=== PATIENT | male | born 1985 | race Caucasian/White ===

== ENCOUNTER 2017-05-27 12:06 | Inpatient (IN) | payer OTHER ==
[2017-05-27 12:15] VITALS: BMI 23.8
--- NOTE | 2017-05-27 16:33 | HP ---
COWS - Scale Resting Pulse: 0= CO 80 or Below Sweatin= Chills/Flushing Restless Observation: 1= Difficult to Sit Still Pupil Size: 0= Normal to Room Light Bone or Joint Aches: 2= Severe Diffuse Aches Runny Nose/ Eye Tearin= Runny Nose/Eyes GI Upset > 30mins: 2= Nausea/Diarrhea Tremor Observation: 2= Slight Tremor Visible Yawning Observation: 2= >3x During Session Anxiety or Irritability: 2=Irritable/Anxious Goose Flesh Skin: 0=Smooth Skin COWS Score: [address] [facility] Chief Complaint: "I have a Heroin problem and I would really like to get my life together." Patient is here to Detox from Heroin. Allergies/Adverse Reactions: Allergies Allergy/AdvReac Type Severity Reaction Status Date / Time Fish Containing Products Allergy Severe Hives Verified 05/27/17 16:25 fish derived Allergy Severe Hives Verified 05/27/17 16:25 History of Present Illness: Patient is a 31 YO male here to Detox from Heroin. This is patient's first Detox admission at [facility]. Patient had a Detox admission at [facility] in 11/2016. Longest period of non-drug use in recent years: approx. 2 weeks (11/2016). Exam Limitations: No Limitations - Ebola screening Have you traveled outside of the country in the last 21 days: No Have you had contact with anyone from an Ebola affected area: No Have you been sick,other than usual withdrawal symptoms: No Do you have a fever: No - Review of Systems Constitutional: Chills, Diaphoresis, Fever, Loss of Appetite, Malaise, Night Sweats, Changes in sleep, Unexplained wgt Loss (Lost approx. 20 lbs over last 6 months.) EENT: reports: Nose Congestion, Sinus Pressure Respiratory: reports: No Symptoms reported Cardiac: reports: No Symptoms Reported GI: reports: Diarrhea, Nausea, Poor Appetite, Vomiting, Indigestion (Heartburn.) , Abdominal cramping : reports: No Symptoms Reported Musculoskeletal: reports: No Symptoms Reported Integumentary: reports: No Symptoms Reported Neuro: reports: Tremors Endocrine: reports: No Symptoms Reported Hematology: reports: No Symptoms Reported Psychiatric: reports: Judgement Intact, Mood/Affect Appropiate, Orientated x3, Anxious (On meds.), Depressed (Due to Drug use and personal situation.) Other Systems: Reviewed and Negative Patient History - Patient Medical History Hx Anemia: No Hx Asthma: No Hx Chronic Obstructive Pulmonary Disease (COPD): No Hx Cancer: No Hx Cardiac Disorders: No Hx Congestive Heart Failure: No Hx Hypertension: No Hx Hypercholesterolemia: No Hx Pacemaker: No HX Cerebrovascular Accident: No Hx Seizures: No Hx Dementia: No Hx Diabetes: No Hx Gastrointestinal Disorders: No Hx Liver Disease: No Hx Genitourinary Disorders: No Hx Sexually Transmitted Disorders: No Hx Renal Disease (ESRD): No Hx Thyroid Disease: No Hx Human Immunodeficiency Virus (HIV): No (Last tested approx. 2 months ago.) Hx Hepatitis C: No (NEGATIVE, Cannot recall when last tested.) Hx Depression: Yes (Only due to substance use and currenet personal situation.) Hx Suicide Attempt: No (PATIENT DENIES CURRENT SI / HI.) Hx Bipolar Disorder: No Hx Schizophrenia: No Other Medical History: DENIES. - Patient Surgical History Past Surgical History: No Hx Neurologic Surgery: No Hx Cataract Extraction: No Hx Cardiac Surgery: No Hx Lung Surgery: No Hx Breast Surgery: No Hx Breast Biopsy: No Hx Abdominal Surgery: No Hx Appendectomy: No Hx Cholecystectomy: No Hx Genitourinary Surgery: No Hx Section: No Hx Orthopedic Surgery: No Other Surgical History: DENIES. Anesthesia Reaction: No - PPD History Previous Implant?: Yes Documented Results: Negative w/o proof Implanted On Prior [facility] Admission?: No PPD to be Administered?: Yes - Reproductive History Patient is a Female of Child Bearing Age (11 -55 yrs old): No (PATIENT IS MALE.) - Smoking Cessation Smoking history: Current every day smoker Have you smoked in the past 12 months: Yes Aproximately how many cigarettes per day: 30 Cigars Per Day: 0 Hx Chewing Tobacco Use: No Initiated information on smoking cessation: Yes 'Breaking Loose' booklet given: 05/27/17 (GIVEN TO PATIENT.) - Substance & Tx. History Hx Alcohol Use: No Hx Substance Use: Yes Substance Use Type: Heroin, Marijuana Hx Substance Use Treatment: Yes (1 Detox Admission at [facility] ( 11/2016).) - Substances Abused Heroin Route: Inhalation Frequency: Daily Amount used: 1 BUNDLE Age of first use: 30 Date of Last Use: 05/26/17 Alprazolam (Xanax) Route: Oral Frequency: 1-3 times last 30 days Amount used: 2 MG Age of first use: 30 Date of Last Use: 05/26/17 Marijuana/Hashish Route: Smoking Frequency: Daily Amount used: 3.5 Grams Age of first use: 19 Date of Last Use: 05/27/17 Family Disease History - Family Disease History Family Disease History: Other: Father (HTN AND STROKE--), Brother ( Overdose, .) Admission Physical Exam [facility] - Vital Signs Vital Signs: Vital Signs - 24 hr 05/27/17 12:10 Temperature 96.7 F L Pulse Rate 74 Respiratory 18 Rate Blood Pressure 119/71 - Physical General Appearance: Yes: No Apparent Distress, Nourished, Appropriately Dressed , Mild Distress, Tremorous, Anxious HEENTM: Yes: Hearing grossly Normal, Normocephalic, Normal Voice, KHOA, Pharynx Normal Respiratory: Yes: Chest Non-Tender, Lungs Clear, No Respiratory Distress, No Accessory Muscle Use Neck: Yes: No masses,lesions,Nodules, Supple, Trachea in good position Breast: Yes: Breast Exam Deferred Cardiology: Yes: Regular Rhythm, Regular Rate, S1, S2 Abdominal: Yes: Normal Bowel Sounds, Non Tender, Flat, Soft Genitourinary: Yes: Within Normal Limits Back: Yes: Normal Inspection Musculoskeletal: Yes: full range of Motion, Gait Steady Extremities: Yes: Normal Capillary Refill, Normal Range of Motion, Non-Tender, Tremors Neurological: Yes: Fully Oriented, Alert, Normal Mood/Affect, Normal Response Integumentary: Yes: Normal Color, Dry, Warm Lymphatic: Yes: Within Normal Limits - Diagnostic (1) Opioid dependence with withdrawal Current Visit: Yes Status: Acute (2) Nicotine dependence Current Visit: Yes Status: Chronic Qualifiers: Nicotine product type: cigarettes Substance use status: uncomplicated Qualified Code(s): F17.210 - Nicotine dependence, cigarettes, uncomplicated (3) Anxiety Current Visit: Yes Status: Acute (4) Insomnia Current Visit: Yes Status: Acute Qualifiers: Insomnia type: unspecified Qualified Code(s): G47.00 - Insomnia, unspecified (5) Cannabis dependence, uncomplicated Current Visit: Yes Status: Acute (6) Sedative, hypnotic or anxiolytic dependence with withdrawal, uncomplicated Current Visit: Yes Status: Acute Cleared for Admission [facility] - Detox or Rehab [facility] Level of Care: Medically Managed Detox Regimen/Protocol: Methadone [facility] Breath Alcohol Content Breath Alcohol Content: 0 Urine Drug Screen - Results Drug Screen Negative: No Urine Drug Screen Results: THC-Marijuana, OPI-Opiates, BAR-Barbiturates, BZO- Benzodiazepines, MTD-Methadone, TCA-Tricyclic Antidepress, OXY-Oxycodone
[2017-05-27] MEDS ORDERED: guaiFENesin/D-METHORPHAN HB 10 ML UNIT-DOSE CUPS PO PRN (16:58)
[2017-05-27] MEDS ORDERED: NICOTINE POLACRILEX 4 MG GUM BC PRN (16:58)
[2017-05-27] MEDS ORDERED: ACETAMINOPHEN 325 MG TABLET (FP) PO PRN (16:58)
[2017-05-27] MEDS ORDERED: IBUPROFEN 400 MG TABLET (FP) PO PRN (16:58)
[2017-05-27] MEDS ORDERED: LOPERAMIDE HCL 2 MG CAPSULE PO PRN (16:58)
[2017-05-27] MEDS ORDERED: MAG HYDROX/AL HYDROX/SIMETH 30 ML UNIT-DOSE CUP PO PRN (16:58)
[2017-05-27] MEDS ORDERED: MENTHOL/PHENOL 1 EACH UD MM PRN (16:58)
[2017-05-27] MEDS ORDERED: P-EPHED 60MG/TRIPROLIDI 2.5MG TABLET PO PRN (16:58)
[2017-05-27] MEDS ORDERED: MAGNESIUM CITRATE 300 ML BOTTLE PO PRN (16:58)
[2017-05-27] MEDS ORDERED: MAGNESIUM HYDROX 2400MG/30ML ORAL SUSPENSION 30 ML CUP PO PRN (16:58)
[2017-05-27] MEDS ORDERED: METHADONE HCL 10 MG TABLET (FOR DETOX USE ONLY) PO ONE ×2 (17:15→23:00)
[2017-05-27] MEDS: diazePAM 5 MG TABLET PO PRN ×2 (18:32→22:16)
[2017-05-27] MEDS: NICOTINE 21 MG/24 HOURS TOPICAL PATCH TD SCH (18:33)
[2017-05-27] MEDS ORDERED: MELATONIN 5 MG TABLETS PO SCH (22:00)
[2017-05-27] MEDS ORDERED: THIAMINE HCL 100 MG TABLET (FP) PO SCH (22:00)
[2017-05-27 23:28] LABS: URINE APPEARANCE TURBID; URINE BILIRUBIN NEGATIVE (<2.0 mg/dL); URINE BLOOD NEGATIVE (NEGATIVE); URINE COLOR AMBER; URINE GLUCOSE (UA) NEGATIVE (NEGATIVE); URINE KETONE NEGATIVE (NEGATIVE); URINE LEUK ESTERASE NEGATIVE (NEGATIVE); URINE NITRITE NEGATIVE (NEGATIVE); URINE PROTEIN NEGATIVE (NEGATIVE)
[2017-05-28] MEDS: diazePAM 5 MG TABLET PO PRN ×4 (05:54→18:20)
[2017-05-28] MEDS ORDERED: PRENATAL VITAMINS W/ FOLIC ACID TABLET (FP) PO SCH (10:00)
[2017-05-28] MEDS ORDERED: METHADONE HCL 10 MG TABLET (FOR DETOX USE ONLY) PO ONE (10:00)
[2017-05-28 10:03] LABS: HEMATOCRIT 43.5 % (35.4-49); HEMOGLOBIN 14.6 GM/dL (11.7-16.9); MCH 29.8 pg (25.7-33.7); MCHC 33.6 g/dl (32.0-35.9); MEAN CELL VOLUME 88.8 fl (80-96); MEAN PLT VOLUME 8.3 fl (7.5-11.1); PLATELET COUNT 291 K/MM3 (134-434); RDW 15.2 % (11.9-15.9); WHITE BLOOD COUNT 13.6 K/mm3 (4.0-10.0)
[2017-05-28 10:14] LABS: CHLORIDE 99 mmol/L (98-107); POTASSIUM 4.1 mmol/L (3.5-5.1); SODIUM 139 mmol/L (136-145)
[2017-05-28] MEDS: NICOTINE 21 MG/24 HOURS TOPICAL PATCH TD SCH (10:16)
[2017-05-28 10:51] LABS: ALBUMIN 4.1 g/dl (3.4-5.0); ALK PHOS 76 U/L (45-117); ANION GAP 11 (8-16); BILIRUBIN,TOTAL 0.5 mg/dL (0.2-1.0); BLOOD UREA NITROGEN 13 mg/dL (7-18); CALCIUM 9.1 mg/dL (8.5-10.1); CO2 29 mmol/L (21-32); CREATININE 0.9 mg/dL (0.7-1.3); GLUCOSE,RANDOM 68 mg/dL (74-106); SGOT/AST 19 U/L (15-37); SGPT/ALT 22 U/L (12-78); TOT PROT 7.4 g/dl (6.4-8.2)
[2017-05-28 14:34] VITALS: PULSE 83; TEMP 98.1
[2017-05-28 17:34] VITALS: BP 130/85
--- NOTE | 2017-05-28 17:41 | CONSULT ---
[facility] Psychiatric Consult - Data Date of interview: 05/28/17 Admission source: [facility] Identifying data: Third admission to [facility] for this 31 y/o male seeking detox treatment on for heroin,xanax and cannabis dependence.Patient is single,a father of one,domiciled,currently unemployed and self-sufficient (trained as a [employer]). Substance Abuse History: Discussed with patient in this encounter. See details in the current [facility] report : Smoking history: Current every day smoker. Have you smoked in the past 12 months: Yes. Aproximately how many cigarettes per day : 30. Cigars Per Day: 0. Hx Chewing Tobacco Use: No. Initiated information on smoking cessation: Yes. 'Breaking Loose' booklet given: 05/27/17 (GIVEN TO PATIENT.). - Substance & Tx. History. Hx Alcohol Use: No. Hx Substance Use: Yes. Substance Use Type: Heroin, Marijuana. Hx Substance Use Treatment: Yes ( 1 Detox Admission at [facility] (11/2016).). - Substances Abused. Heroin. Route: Inhalation. Frequency: Daily. Amount used: 1 BUNDLE. Age of first use: 30. Date of Last Use: 05/26/17. Alprazolam ( Xanax). Route: Oral. Frequency: 1-3 times last 30 days. Amount used: 2 MG. Age of first use: 30. Date of Last Use: 05/26/17. Marijuana/Hashish. Route : Smoking. Frequency: Daily. Amount used: 3.5 Grams. Age of first use: 19. Date of Last Use: 05/27/17 Medical History: Patient endorses good general health. Psychiatric History: Patient denies. Physical/Sexual Abuse/Trauma History: Patient denies. Additional Comment: Urine Drug Screen Results: THC-Marijuana, OPI-Opiates, BAR- Barbiturates, BZO-Benzodiazepines, MTD-Methadone, TCA-Tricyclic Antidepressant, OXY-Oxycodone.Noted. Mental Status Exam - Mental Status Exam Alert and Oriented to: Time, Place, Person Cognitive Function: Good Patient Appearance: Inappropriate (wearing tank top style T-shirt on the unit ; covered with tattoos : neck,arms,forearms) Mood: Nervous, Withdrawn, Anxious Affect: Mood Congruent Patient Behavior: Fatigued, Appropriate, Cooperative Speech Pattern: Clear, Appropriate Voice Loudness: Normal Thought Process: Intact, Goal Oriented Thought Disorder: Not Present Hallucinations: Denies Suicidal Ideation: Denies Homicidal Ideation: Denies Insight/Judgement: Poor Sleep: Poorly, Difficulty falling asleep Appetite: Good Muscle strength/Tone: Normal Gait/Station: Normal Psychiatric Findings - Problem List (Crum 1, 2,3) (1) Opioid dependence with withdrawal Status: Acute (2) Sedative, hypnotic or anxiolytic dependence with withdrawal, uncomplicated Status: Acute (3) Cannabis dependence, uncomplicated Status: Acute (4) Nicotine dependence Status: Acute Qualifiers: Nicotine product type: cigarettes Substance use status: uncomplicated Qualified Code(s): F17.210 - Nicotine dependence, cigarettes, uncomplicated (5) Substance induced mood disorder Status: Acute (6) Insomnia Status: Acute Qualifiers: Insomnia type: unspecified Qualified Code(s): G47.00 - Insomnia, unspecified - Initial Treatment Plan Initial Treatment Plan: Psychoeducation.Sleep hygiene.Detoxification in progress.Medications : trazodone 50 mg po hs + gabapentin 300 mg tid.Side effects/benefits of each drug are discussed with the patient.Informed,in particular,of the risk of priapism and instructed to stop taking that medication if occurrence of erectile issues (painful/prolonged erection) .Patient agrees with this careplan.Observation.Medications confirmed by pharmacy claims of 05/17/17 @ [facility].
--- NOTE | 2017-05-28 19:05 | PN ---
S COWS - Scale Resting Pulse: 0= CO 80 or Below Sweatin=Flushed/Facial Moisture Restless Observation: 1= Difficult to Sit Still Pupil Size: 0= Normal to Room Light Bone or Joint Aches: 1= Mild Discomfort Runny Nose/ Eye Tearin= Nasal Congestion GI Upset > 30mins: 2= Nausea/Diarrhea Tremor Observation of Outstretched Hands: 2= Slight Tremor Visible Yawning Observation: 1= 1-2x During Session Anxiety or Irritability: 2=Irritable/Anxious Goose Flesh Skin: 0=Smooth Skin COWS Score: 12 [facility] Progress Note (SOAP) Subjective: sleep disturbance nausea Objective: 05/28/17 19:04 A & O x 3 anxious Vital Signs Temperature 98.1 F 05/28/17 17:34 Pulse Rate 83 05/28/17 17:34 Respiratory Rate 20 05/28/17 17:34 Blood Pressure 130/85 05/28/17 17:34 O2 Sat by Pulse Oximetry (%) Laboratory Last Values WBC 13.6 K/mm3 (4.0-10.0) H 05/28/17 06:00 RBC 4.90 M/mm3 (4.00-5.60) 05/28/17 06:00 Hgb 14.6 GM/dL (11.7-16.9) 05/28/17 06:00 Hct 43.5 % (35.4-49) 05/28/17 06:00 MCV 88.8 fl (80-96) 05/28/17 06:00 MCH 29.8 pg (25.7-33.7) 05/28/17 06:00 MCHC 33.6 g/dl (32.0-35.9) 05/28/17 06:00 RDW 15.2 % (11.9-15.9) 05/28/17 06:00 Plt Count 291 K/MM3 (134-434) 05/28/17 06:00 MPV 8.3 fl (7.5-11.1) 05/28/17 06:00 Sodium 139 mmol/L (136-145) 05/28/17 06:00 Potassium 4.1 mmol/L (3.5-5.1) 05/28/17 06:00 Chloride 99 mmol/L (98-107) 03/24/18 06:00 Carbon Dioxide 29 mmol/L (21-32) 05/28/17 06:00 Anion Gap 11 (8-16) 05/28/17 06:00 BUN 13 mg/dL (7-18) D 05/28/17 06:00 Creatinine 0.9 mg/dL (0.7-1.3) D 05/28/17 06:00 Creat Clearance w eGFR > 60 (>60) 05/28/17 06:00 Random Glucose 68 mg/dL (74-106) L D 05/28/17 06:00 Calcium 9.1 mg/dL (8.5-10.1) 05/28/17 06:00 Total Bilirubin 0.5 mg/dL (0.2-1.0) D 05/28/17 06:00 AST 19 U/L (15-37) D 05/28/17 06:00 ALT 22 U/L (12-78) 05/28/17 06:00 Alkaline Phosphatase 76 U/L (45-117) 05/28/17 06:00 Total Protein 7.4 g/dl (6.4-8.2) 05/28/17 06:00 Albumin 4.1 g/dl (3.4-5.0) 05/28/17 06:00 Urine Color Lesly 05/27/17 Unknown Urine Appearance Turbid 05/27/17 Unknown Urine pH 5.0 (5.0-8.0) 05/27/17 Unknown Ur Specific [place]anan 1.026 (1.001-1.035) 05/27/17 Unknown Urine Protein Negative (NEGATIVE) 05/27/17 Unknown Urine Glucose (UA) Negative (NEGATIVE) 05/27/17 Unknown Urine Ketones Negative (NEGATIVE) 05/27/17 Unknown Urine Blood Negative (NEGATIVE) 05/27/17 Unknown Urine Nitrite Negative (NEGATIVE) 05/27/17 Unknown Urine Bilirubin Negative (<2.0 mg/dL) 05/27/17 Unknown Urine Urobilinogen 2.0 mg/dL (0.2-1.0) 05/27/17 Unknown Ur Leukocyte Esterase Negative (NEGATIVE) 05/27/17 Unknown labs noted Assessment: 05/28/17 19:05 withdrawal sx Plan: continue detox
--- NOTE | 2017-05-28 19:33 | DS ---
[facility] Detox Discharge Summary Admission Date: 05/27/17 Discharge Date: 05/28/17 - History Additional Comments: Pphone call from PAUL Krishnan that pt insisted on leaving unit, pt was A & O x3, had steady gait and was not receptive to staying. Pt left unit before provider could get to floor. I had seen pt earlier in [facility] - Physical Exam Results Vital Signs: Vital Signs Temperature 98.1 F 05/28/17 17:34 Pulse Rate 83 05/28/17 17:34 Respiratory Rate 20 05/28/17 17:34 Blood Pressure 130/85 05/28/17 17:34 O2 Sat by Pulse Oximetry (%) - Medication Discharge Medications: Ambulatory Orders Gabapentin 600 mg PO TID 05/27/17 hydrOXYzine HCL [Atarax -] 50 mg PO TID 05/27/17 - Diagnosis (1) Opioid dependence with withdrawal Status: Acute (2) Nicotine dependence Status: Acute Qualifiers: Nicotine product type: cigarettes Substance use status: uncomplicated Qualified Code(s): F17.210 - Nicotine dependence, cigarettes, uncomplicated (3) Cannabis dependence, uncomplicated Status: Acute (4) Sedative, hypnotic or anxiolytic dependence with withdrawal, uncomplicated Status: Acute (5) Anxiety Status: Acute (6) Insomnia Status: Acute Qualifiers: Insomnia type: unspecified Qualified Code(s): G47.00 - Insomnia, unspecified (7) Substance induced mood disorder Status: Acute - AMA Did Patient Leave Against Medical Advice: Yes
[2017-05-28] MEDS ORDERED: GABAPENTIN 300 MG CAPSULE (FP) PO SCH (22:00)
[2017-05-28] MEDS ORDERED: traZODone HCL 50 MG TABLET (FP) PO SCH (22:00)
[2017-05-29] MEDS ORDERED: METHADONE HCL 5 MG TABLET (FOR DETOX USE ONLY) PO ONE (10:00)
--- NOTE | 2017-05-30 09:14 | EKG ---
Test Reason : Blood Pressure : / mmHG Vent. Rate : 080 BPM Atrial Rate : 080 BPM P-R Int : 148 ms QRS Dur : 096 ms QT Int : 386 ms P-R-T Axes : 060 085 067 degrees QTc Int : 445 ms NORMAL SINUS RHYTHM NORMAL ECG NO PREVIOUS ECGS AVAILABLE Confirmed by KATE BAINS MD ([id number]) on 05/30/2017 9:13:43 AM Referred By: Confirmed By:KATE BAINS MD
[2017-05-30] MEDS ORDERED: METHADONE HCL 5 MG TABLET (FOR DETOX USE ONLY) PO ONE (10:00)
[2017-05-31] MEDS ORDERED: METHADONE HCL 10 MG TABLET (FOR DETOX USE ONLY) PO ONE (10:00)
[2017-06-01] MEDS ORDERED: METHADONE HCL 5 MG TABLET (FOR DETOX USE ONLY) PO ONE (06:00)
== END 2017-05-28 19:01 | disposition left against medical advice (07) | DRG 770 ==
LOC: YASAS 12:06 → Y6N 17:23
PROVIDERS: ADMIT Internal Medicine; ATTEND Internal Medicine
PROC: HZ2ZZZZ Detoxification Services for Substance Abuse Treatment (ICD-10-PCS; principal; 2017-05-27)
DX: F11.23 Opioid dependence with withdrawal (principal); F13.230 Sedative, hypnotic or anxiolytic dependence with withdrawal, uncomplicated; F14.20 Cocaine dependence, uncomplicated; F17.210 Nicotine dependence, cigarettes, uncomplicated; F19.24 Other psychoactive substance dependence with psychoactive substance-induced mood disorder; F41.9 Anxiety disorder, unspecified; G47.00 Insomnia, unspecified
CPT/HCPCS: 36415; 80053; 81003; 85027; 86593; 93005; 93010